=== PATIENT | female | born 1960 | race African-American/Black ===

== ENCOUNTER 2017-04-26 17:10 | Inpatient (IN) | payer OTHER ==
[~2017-04-26] VITALS: Ht 157.4 cm; Wt 46.3 kg
--- NOTE | ~2017-04-26 | PR ---
[place], [place] PROGRESS NOTE NAME: SERA CLARK UNIT #: [id number] ROOM: 315 DOCTOR: KELSEA MOORE MD BIRTHDATE: [birth year] DOS: 04/28/2017 CHIEF COMPLAINT: "I want regular soap, I do not like this kind of soap." SUMMARY OF THE VISIT: The patient was interviewed in her room. She was up moving about, and trying to get ready. She was very upset and agitated about the soap that was being given to her and seemed to be magnifying her frustration. On a positive note, she did report that she slept better last night, but is still feeling depressed and overwhelmed with life stressors. She convincingly denies any medication side effects. MENTAL STATUS: She is alert and oriented. Mood does still seem to be depressed with anxious overtones. There is no arun or hypomania. There are no auditory or visual hallucinations. No delusions, no paranoia. Short term memory, long-term memory are intact. PLAN: I will maintain her current dose of Remeron and Risperdal. Continue to engage her in individual and davis milieu activity with the ultimate plan to return home when psychiatrically stable. KELSEA MOORE MD CM:PNTRANS 1 04 KELSEA MOORE MD 04/28/172302 interface
--- NOTE | ~2017-04-26 | DS ---
[place], [place] DISCHARGE SUMMARY NAME: SERA CLARK UNIT #: [id number] ROOM: 315 DOCTOR: KELSEA MOORE MD BIRTHDATE: [birth year] DOS: 05/02/2017 CHIEF COMPLAINT: "I have just been so depressed, I cannot function." HISTORY OF PRESENT ILLNESS: This is a 56-year-old black female who was admitted here from on an involuntary basis. The patient was picked up by the police who found her in her parking lot lying on the ground. The patient was incoherent at the time and totally disoriented. She was evaluated at the hospital and they likewise found her to be alert, but very disoriented and confused. Because they felt that she represented a harm to self because she could not attend to her ADLs and care for herself, they did send her on an involuntary basis here. The patient traces much of her recent problems to having placed her mother into a long-term care facility. She has been her primary caregiver for the last 8 years and the mother who suffers from Alzheimer dementia has progressed to the point where care for her at home is impossible. The patient did endorse multiple neurovegetative signs at the time of admission including feeling depressed with poor sleep with difficulty falling asleep, sleep continuity disturbance, rn surgical pcu awakening, anergia, anhedonia, hopeless, helpless feelings, crying spells, and inability to cope. She has had an extremely poor appetite and has lost considerable amount of weight. She is admitted now to rule out organic factors, to stabilize on medication and return home when stable. PAST MEDICAL HISTORY: The patient has a previous history of cocaine and heroin abuse; however, she reports being clean and sober for 20 years. She is currently a cigarette smoker and suffers from nicotine dependence as well as having a history of anemia. SUMMARY OF HOSPITAL COURSE: The patient was admitted to the unit where she was found to have a low vitamin D level, so vitamin D 50,000 international units was weekly was started. For her depression, Remeron 15 mg at bedtime was utilized and Risperdal 0.5 mg in the morning and 1 mg at night was given because there was a significant psychotic component to her depression. The patient was nearly catatonic early on and then had a bout where she suddenly woke up and became very combative and attempted to elope the facility on multiple times. She was very confused and disoriented and required p.r.n. intervention. At this point in time, her Risperdal dose was doubled to 1 mg in the morning and 2 mg at bedtime with excellent results. The patient cleared rapidly. Because her sleep still was somewhat problematic, the Remeron was adjusted minimally from 15 mg to 22.5 mg at bedtime and again with excellent results. With this combination of medication, the patient slept well, ate better, was able to engage in individual and davis milieu activities. She voiced positive plans for the future and was anxious to return home. Her plan was to go home to [place] to live with her son. She convincingly denied medication side effects. MENTAL STATUS AT DISCHARGE: She is alert and oriented with some mild time gaps. Mood is strongly trending towards euthymia. Affect is much more appropriate. There are no symptoms of hypomania or arun. There are no overt auditory or visual hallucinations. No delusions, no paranoia. Short, intermediate, and long-term memory were intact. [place], [place] DISCHARGE SUMMARY NAME: SERA CLARK UNIT #: [id number] ROOM: 315 DOCTOR: KELSEA MOORE MD BIRTHDATE: [birth year] FINAL DIAGNOSIS AT DISCHARGE: Major depression, recurrent, with psychotic features. PLAN: All of her prescriptions have been printed and will be sent home with her. She will have followup in the [place] area with the provider of her choice. KELSEA MOORE MD CM:DISCHARG 0833 KELSEA MOORE MD 05/02/17 0831 interface
--- NOTE | ~2017-04-26 | WRIGHTHP ---
[place], [place] PATIENT HISTORY AND PHYSICAL EXAM NAME: SERA CLARK UNIT #: [id number] ROOM: 317 DOCTOR: KELSEA MOORE MD BIRTHDATE: [birth year] DOS: 04/27/2017 INITIAL PSYCHIATRIC EVALUATION CHIEF COMPLAINT: "I have just been so depressed. I cannot function." HISTORY OF PRESENT ILLNESS: This is a 56-year-old black female sent here on an involuntary basis from [facility]. The patient was picked up by the police who found her in her parking lot lying on the ground. The patient was incoherent at that time and totally disoriented. She was evaluated at the hospital who likewise found her to be alert, but disoriented and felt that she represented a significant risk of harm to self and others. The patient did verbalize feeling both depressed and anxious and very fearful. She traces much of this to recently having to place her mother into a long-term care facility. Her mother suffers from Alzheimer's and she was her primary caregiver for at least 8 years. During this most recent period of time, the patient endorses multiple neurovegetative symptoms that include decreased sleep with difficulty falling asleep, sleep continuity disturbance, aerospace quality engineer awakening, anergia, anhedonia, hopeless, helpless feelings, crying spells and inability to cope. The patient also has an extremely poor appetite and has lost a considerable amount of weight. She is admitted now to rule out organic factors and to attempt to stabilize on medication. PAST MEDICAL HISTORY: Remarkable for a history of cocaine and heroin abuse. However, she has been clean for at least 20 years. She also has a history of anemia and nicotine dependence. MENTAL STATUS: She is alert and oriented. Mood is overwhelmingly depressed. Affect is flat and blunted with a constricted range. She endorses the above-mentioned neurovegetative symptoms. There is no overt hypomania or arun. There are no auditory or visual hallucinations. It is unclear if some of her fearfulness borders on being paranoid. Memory seems intact. DIAGNOSIS: Major depression, recurrent with psychotic features. PLAN: I have already started her on Risperdal 0.5 in the morning and 1 mg at bedtime. I do not want to see her sedate, so I will discontinue the a.m. dose of Risperdal. I will add Remeron 15 mg at bedtime to combat the depression. Routine screening examination show her to have a low vitamin D level, so I will start vitamin D 50,000 international units weekly. We will engage her in individual and davis milieu activity with the plan to return home when psychiatrically stable. [place], [place] PATIENT HISTORY AND PHYSICAL EXAM NAME: SERA CLARK UNIT #: [id number] ROOM: 317 DOCTOR: KELSEA MOORE MD BIRTHDATE: [birth year] KELSEA MOORE MD CM:HISPHYS:PATIENT HISTORY AND PHYSICAL EXAMINATION [id number] KELSEA MOORE MD 04/27/17 1311 interface
--- NOTE | ~2017-04-26 | PR ---
[place], [place] PROGRESS NOTE NAME: SERA CLARK UNIT #: [id number] ROOM: 315 DOCTOR: KELSEA MOORE MD BIRTHDATE: [birth year] DOS: 05/01/2017 CHIEF COMPLAINT: "I still need help, I will sign in." SUMMARY OF THE VISIT: The patient was interviewed as she rested quietly in bed. She did engage in conversation with me readily. She did report that she did sleep better, but is still tired and does not want to get up. When I discussed with her her continued stay here, she nodded in approval and stated she knows she still needs to get help and prefers to stay here then leave. She convincingly denies medication side effects. Nurses note that her behavior which was so problematic Monday night leading into Monday seemed to take a turn for the better and she regrouped and did have a much better weekend. She does still seem to be somewhat depressed, but is improving gradually. MENTAL STATUS: She is alert and oriented with some gaps in time frame. Mood does seem to be strongly trending towards euthymia and affect is much more appropriate. There is no symptom suggestive of hypomania or arun. Likewise, there are no overt auditory or visual hallucinations. No delusions, no paranoia. Short, intermediate and long-term memories for the most part are fairly intact. PLAN: I will maintain her current dose of Risperdal, which is 1 mg in the morning and 2 mg at 5 p.m. I will increase her Remeron from 15 to 22.5 mg at bedtime in order to maximize potential benefits. We will engage her in individual and davis milieu activity with the ultimate plan to return home when psychiatrically stable. KELSEA MOORE MD CM:PNTRANS [id number] KELSEA MOORE MD 05/01/17 1009 interface
--- NOTE | ~2017-04-26 | PR ---
[place], [place] PROGRESS NOTE NAME: SERA CLARK UNIT #: [id number] ROOM: 315 DOCTOR: KELSEA MOORE MD BIRTHDATE: [birth year] DOS: 04/29/2017 CHIEF COMPLAINT: The patient mumbled. SUMMARY OF THE VISIT: The patient was attempted to be interviewed. She was reclining in a Haylie chair watching television in the dining area. She was somewhat somnolent, attempts to engage her were met with her mumbling unintelligibly. Nurses report, she had a horrible evening last evening and around 5:00 p.m. began to escalate and became increasingly confused and agitated. She was seeking and required to be redirected on multiple occasions, ultimately requiring p.r.n. intervention with good results with some residual somnolence noted. MENTAL STATUS: My mental status is limited due to her level of somnolence at the present time. PLAN: I will go ahead and increase the Risperdal to 1 mg in the morning and I will do a 2 mg dose at 1700 hours to try to offset what appears to be sundowning. We will need to get a better handle as to whether this was an isolated incident or if we are seeing a pattern suggestive of sundowning and need to then evaluate her cognitive status to determine whether or not this will impact negatively on her being able to live independently. We will engage her in individual and davis milieu activity with the plan to return to the least restrictive environment when psychiatrically stable. KELSEA MOORE MD CM:PNTRANS [id number] KELSEA MOORE MD 04/29/17 1244 interface
[2017-04-26 19:38] VITALS: BP 143/81
--- NOTE | 2017-04-26 19:38 | NUR ---
SERA CLARK Shabnam a 56 year old F admitted via stretcher from the ADMITTING as a voluntary admission. Arrived on unit at 1935PM. ALLERGIES: DENIES. Vital signs are: [id number] 143/81. The client signed the following forms with stated understanding: Authorization For The Release of Medical Information, Clothing List, CLIENT PINK SLIPPED, UNABLE TO SIGN THE FOLLOWING. Admission and Hospitalization, Consent and Release Forms/Receipt of Rights, Acknowledgement of Advance Directive Information, Behavioral Health Consent Form, and Informed Consent of Medications. Admitted under the services of Dr. OSCAR ALMARAZ,[facility]. A search was conducted and hazardous articles were removed. Client was oriented to the unit. Client teary and forgetful. Most questions answered with "Idon't know". Emotional support provided ROSALIA SINCLAIR
[2017-04-26 19:45] VITALS: BP 143/81
[2017-04-26 19:55] VITALS: BP 143/81
--- NOTE | 2017-04-26 21:50 | NUR ---
SHOWING SIGNS OF SHORT TERM MEMORY LOSS. HAS BEEN TO DESK MULTIPLE TIMES ASKING FOR HER BOOK FROM HOME. REMINDED HER THAT SHE DID NOT BRING IT AND SHE PROBABLY GAVE IT TO HER SON THE SAME TIME SHE GAVE HIM HER MONEY. PLACED HAT IN TOILET AND EXPLAINED WE NEEDED A URINE. WENT TO CHECK AND HAT HAD RESIDUAL OF URINE. WHEN ASKED WERE URINE WAS SHE REPLIED "OH I FORGOT AND DUMPED IT" REINFORCED IMPORTANCE OF LETTING US KNOW WHEN SHE GOES AND NOT TO FLUSH. VERBALIZED UNDERSTANDING BUT WILL CONTINUE TO REMIND HER.
--- NOTE | 2017-04-26 22:00 | NUR ---
NOTIFIED DR Lucila GENTILE ABOUT ADMISSION AND THAT MEDICATION REC IS READY FOR HER REVIEW. DR RAHMAN IS HOSPITALIST
--- NOTE | 2017-04-27 01:13 | NUR ---
RESTING QUIET AT THIS TIME. MOVING SELF IN BED. WILL START TREATMENT PLAN IN AM.
--- NOTE | 2017-04-27 03:10 | NUR ---
DR Ismael GENTILE HERE TO EXAMINE CLIENT
[2017-04-27 04:48] LABS: BASO % 0.7 % (0.0-1.0); EOS % 0.9 % (1.0-4.0); HEMOGLOBIN 12.6 g/dl (12.0-16.0); LYMPH # 1.8 10*3/uL (1.3-4.4); LYMPH % 40.5 % (27.0-41.0); MEAN CELL VOLUME 84.6 fl (81.0-99.0); MEAN CORPUSCULAR HGB 28.1 pg (27.0-31.0); MEAN CORPUSCULAR HGB CONC 33.2 g/dl (33.0-37.0); MEAN PLATELET VOLUME 10.9 fl (9.6-12.3); MONO # 0.4 10*3/uL (0.1-1.0); MONO % 9.8 % (3.0-9.0); NEUT # 2.1 10*3/uL (2.3-7.9); NEUT % 47.9 % (47.0-73.0); PLATELET COUNT AUTOMATED 138 10*3/uL (130-400); RED BLOOD COUNT 4.49 10*6/uL (4.10-5.10); RED CELL DISTRI WIDTH 14.1 % (0-14.5); WHITE BLOOD COUNT 4.4 10*3/uL (4.8-10.8)
--- NOTE | 2017-04-27 05:01 | NUR ---
24 HR chart check completed.
[2017-04-27 05:04] LABS: ALBUMIN 3.8 gm/dl (3.1-4.5); ALKALINE PHOSPHATASE 69 U/L (45-117); BUN 19 mg/dl (7-24); CHLORIDE 105 mmol/L (98-107); CHOLESTEROL 174 mg/dL (<200); CREATININE 0.73 mg/dL (0.55-1.02); HDL CHOLESTEROL 74 mg/dl (40-60); LDL CHOLESTEROL 90 mg/dL (9-159); POTASSIUM 3.5 mmol/L (3.5-5.1); SGOT/AST 25 IU/L (3-35); SGPT/ALT 19 U/L (12-78); SODIUM 140 mmol/L (136-145); TRIGLYCERIDES 50 mg/dl (<150); VLDL CHOLESTEROL 10 mg/dL (6-40)
--- NOTE | 2017-04-27 06:21 | NUR ---
SLEPT WELL PAST 2300
[2017-04-27 07:43] LABS: VITAMIN D, 25-HYDROXY 12.9 ng/mL (30-100)
[2017-04-27 07:58] VITALS: BP 100/63
--- NOTE | 2017-04-27 11:27 | NUR ---
PHYSICAL THERAPY PAtient requests no PT evaluation this date. Thank you for this referral. Kamini Ceballos ,PT
--- NOTE | 2017-04-27 12:01 | NUR ---
Occupational Therapy evaluation offered this date. Patient politely declined stating she was too tired today. Patient agreed to tomorrow. Thank you for this referral. Beth Cameron OTR/l
--- NOTE | 2017-04-27 13:19 | NUR ---
Goals,exercise and Trivia Patient did not attend group this morning. Patient was encouraged to do so but refused repeatedly. Ac will attempt again for afternoon group
--- NOTE | 2017-04-27 14:14 | NUR ---
PT ALERT TO PERSON AND PLACE. PT MED COMPLIANT WITHOUT DIFFICUTLY. PT MOOD IS DEPRESSED. PT SLOW TO RESPOND AT TIMES. PT ISOALTIVE TO ROOM FOR MOST OF MORNING. PT PARTICIPATED IN AFTERNOON GROUP. PT HAD 1:1 SESSION WITH GEODETIC TECHNICIAN. PT AMBULATORY THROUGHOUT UNIT, GAIT STEADY. PT CONTINENT OF BOWEL AND BLADDER. PLAN IS TO ENCOURAGE PT TO PARTICIPATE IN GROUPS/ACTIVITIES, ENCOURAGE PT TO VOICE ANY HALLUCINATIONS OR DELUSIONS, PRESENT REALITY WITH EACH INTERACTON AND NEEDED.
--- NOTE | 2017-04-27 14:15 | NUR ---
DANIELITO spoke with pt. son, Rohan who sattes that his mother can stay with him upon d/c. pt is experiencing agitation and "edginess" from not having a cigarette. I aske dher about the nicotine patch and she states, "I really don't want one of those". SW encouraged her to think about getting one atleast while she is on the unit. pt states she will think about it.
--- NOTE | 2017-04-27 16:14 | NUR ---
Physical Therapy evaluation completed. Patient was somewhat reluctant to participate in eval but quickly cooperated. Gait up/down [facility] hallway, [id number] without assistive devices; Transfers are independent. Patient has B LE strength WFL and equal bilaterally. Patient denies pain. Patient demonstrates no safety concerns with functional mobility at this time. PT Eval only as discussed with patient. Low Complexity PT evaluation. Thank you for this referral, Ashley Hernandez, PT
[2017-04-27 18:07] LABS: BILIRUBIN 1+ (NEGATIVE); BLOOD TRACE-INTACT (NEGATIVE); CLARITY CLEAR (CLEAR); COLOR YELLOW (YELLOW); GLUCOSE NEGATIVE (NEGATIVE); KETONE 2+ (NEGATIVE); LEUKO ESTERASE NEGATIVE (NEGATIVE); NITRITE NEGATIVE (NEGATIVE); SPECIFIC GRAVITY 1.025 (1.005-1.030)
[2017-04-27 20:21] VITALS: BP 124/90
--- NOTE | 2017-04-28 01:42 | NUR ---
PT A&O X3. DEPRESSED MOOD. ISOLATIVE AND WITHDRAWN TO SELF. NO HALLUCINATIONS/DELUSIONS NOTED. NO SI/HI. MEDICATION COMPLIANT WITHOUT DIFFICULTY. MEDICATION EDUCATION PROVIDED. PT RETIRED TO BED AFTER RECEIVING MEDICATIONS. RESPIRATIONS EASY AND NONLABORED. Q15 MINUTE SAFETY CHECKS MAINTAINED. SEE [facility] FLOWSHEET FOR SPECIFIC MONITORING.
--- NOTE | 2017-04-28 03:02 | NUR ---
24 HR chart check completed.
--- NOTE | 2017-04-28 06:50 | NUR ---
PT SLEPT APPROXIMATELY 7 HOURS THIS SHIFT.
[2017-04-28 07:41] VITALS: BP 114/71
--- NOTE | 2017-04-28 08:05 | NUR ---
Occupational Therapy Patient approached for OT evaluation this date. Patient was demonstrating independence in ambulation, functional mobility to dining area for breakfast. Patient admits that she is independent in all ADLs and does not require OT at this time. OT Screen completed with no need for OT at this time. Thank you for this referral. Beth Cameron OTR/L
--- NOTE | 2017-04-28 09:02 | NUR ---
SW agitated and states "I need a cigaraette, SW was empathetic, but let pt. know again thatb she cannot smoke while on the unit". D/c plans next week, no date given.
--- NOTE | 2017-04-28 09:07 | NUR ---
04/27/17 Afternoon: Coping with various feelings/Emoji face suncatcher Patient was in 1:1 with SW when group started but joined shortly after. Patient participated and chose not to paint suncatcher but did discuss coping skills with various feelings that she has. Patient was notably depressed during group but yu participated
--- NOTE | 2017-04-28 12:54 | NUR ---
Goals/Exercise/Reminiscing Patient did attend group with limited participation. Patients goal was to "stay positive" which patient was attempting during group. Patient did need some prompting to participate but showed no anxiety or hopelessness while in group. Patient also voiced no suicidal ideations while in group.
--- NOTE | 2017-04-28 15:15 | NUR ---
PT HAS BEEN ANGRY/IRRITABLE MOST OF THE SHIFT. ALERT AND ORIENTED WITH SEVERAL PERIODS OF ACUTE CONFUSION THROUGHOUT THE SHIFT. HAS BEEN OBSERVED WALKING INTO OTHER PTS ROOM, REDIRECTION MET WITH INCREASED AGITATION. SUSPICIOUS AND PARANOID OF STAFF. CAN BE INTRUSIVE/DISRUPTIVE WITH STAFF AND PEERS. NO DELUSIONS OR HALLUCINATIONS NOTED. DENIES ANY SI/HI, PLAN, OR INTENT. MEDICATION COMPLIANT WITHOUT DIFFICULTY. .
--- NOTE | 2017-04-28 18:04 | NUR ---
PATIENT OBSERVED PACING HALLWAYS, PUSHING ON DOORS, ATTEMPTING TO LEAVE UNIT. INCREASED ANXIETY/AGITATION NOTED. PT STATING MY "STUFF IS UPSTAIRS, I NEED TO GO SMOKE, HOW DO I GET OUT OF HERE." INCREASED CONFUSION NOTED. ALL ATTEMPTS TO REDIRECT AND REORIENT ONLY MET WITH ANGER. PARANOID DELUSIONS BEING VOICED ABOUT STAFF. WILL CONTINUE TO MONITOR.
[2017-04-28 20:09] VITALS: BP 126/88
--- NOTE | 2017-04-28 22:50 | NUR ---
PATIENT AMBULATING IN HALLWAY WITH UNSTEADY GAIT. PATIENT ARGUMENTATIVE WITH STAFF AND INTRUSIVE AND DISRUPTIVE WITH OTHER PATIENTS. PATIENT EXIT SEEKING AND ATTEMPTING TO OPEN ALL DOORS ON UNIT. PATIENT YELLING OUT, BANGING ON DOORS, AND WINDOW AT NURSES STATION. PATIENT RESTLESS AND VERBALIZED THAT SHE JUST NEEDED SOMETHING TO CALM DOWN. MEDICATED WITH ATIVAN WITH INEFFECTIVE RESULT. PATIENT RESTED FOR SHORT PERIODS OF TIME. PATIENT MEDICATION COMPLAINT.
--- NOTE | 2017-04-29 05:24 | NUR ---
24 HR chart check completed.
[2017-04-29 07:55] VITALS: BP 132/86
--- NOTE | 2017-04-29 10:07 | NUR ---
REFUSED NICODERM PATCH AT THIS TIME. RESTING IN BED WITH EYES CLOSED. WILL ATTEMPT AGAIN AT A LATER TIME. REFUSED TO ALLOW THIS NURSE TO REMOVED OLD PATCH ALSO.
--- NOTE | 2017-04-29 11:08 | NUR ---
PATIENT IS DOWSY AND CONFUSED THIS AM. ASSISTED INTO BED BY MT D/T UNSTEADY GAIT. MOOD IS ANGRY AND LABILE. ST/LT MEMORY DEFICITS NOTED UPON AM INTERACTIONS. REFUSED BREAKFAST THIS MORNING.
--- NOTE | 2017-04-29 16:30 | NUR ---
PATIENT UP AND WALKING AROUND. INCREASED CONFUSION NOTED. STATING "I'M GOING TO GO SMOKE NOW." REORIENTATION ONLY MET WITH INCREASED AGITATION. PATIENT SITTING IN DINNING ROOM CONVERSING WITH PEERS.
[2017-04-29 20:00] VITALS: BP 110/73
--- NOTE | 2017-04-29 21:15 | NUR ---
KARMA WATSON. HAS BEEN ON PHONE WITH SON FOR A WHILE. NOT INTERESTED IN TALKING 1:1. WANDERING INTERMITTENLY IN HALLWAY. WILL MONITOR
[2017-04-30 07:51] VITALS: BP 103/70
--- NOTE | 2017-04-30 15:52 | NUR ---
PATIENT IS ALERT AND ORIENTED WITH PERIODS OF CONFUSION. MOOD HAS BEEN MORE STABLE THIS SHIFT THAN YESTERDAY WITHOUT ANY ELOPEMENT ATTEMPTS. MOOD DOES REMAIN MILDLY DEPRESSED WITH FLAT AFFECT MOST OF THE TIME DURING INTERACTIONS WITH HER. ISOLATIVE AND WITHDRAWN TO ROOM DESPITE ENCOURAGEMENT TO INTERACT WITH PEERS. MEDICATION COMPLIANT WITHOUT DIFFICULTY. MEDICATION EDUCATION COMPLETED THIS SHIFT WITH MINIMAL EFFECT. NO HALLUCINATIONS, DELUSIONS, OR BEHAVIORS NOTED. DENIES ANY SI/HI. APPETITE GOOD FOR BREAKFAST AND LUNCH, ATE 100% OF BOTH AND TAKING FLUIDS WELL. NAPS INTERMITTENTLY THROUGHOUT THE SHIFT. SEE [facility] FLOWSHEET FOR SPECIFIC MONITORING.
[2017-04-30 20:00] VITALS: BP 108/74
--- NOTE | 2017-04-30 20:51 | NUR ---
STATES HAD A GOOD DAY./ READY TO GO HOME. IN DININGROOM FOR SHORT PERIOD
--- NOTE | 2017-05-01 01:27 | NUR ---
24 HR chart check completed.
--- NOTE | 2017-05-01 04:26 | NUR ---
TURNS SELF IN BED WITHOUT ASSISTANCE. RESTING QUIET THIS SHIFT
--- NOTE | 2017-05-01 05:01 | NUR ---
PT APPROVED 12 DAY STAY PER CAREUCE. NEXT REVIEW DUE 05/08/17.
--- NOTE | 2017-05-01 07:59 | NUR ---
04/28/17 Afternoon Coping skills Patient did not participate in group. Patient angry and upset about being here and her clothes being "upstairs." Patient then requested to call someone
[2017-05-01 08:15] VITALS: BP 112/71
--- NOTE | 2017-05-01 13:21 | NUR ---
Goals/Exercise/Positive Thoughts & Affirmations Patient did not attend group this morning. Patient took a shower then did not show up to group after showering
--- NOTE | 2017-05-01 15:13 | NUR ---
Mood is depressed. Affect is sad. On 1:1 interaction with staff Tricia is limited in verbalization. She states that she does not remember why she came to the hospital. We discussed her episodes of confusion and she looked @ staff questioning and reports that she does not remember. Support provided. Admits to feelings of depression, but does not elaborate on this. Denies any thoughts of self harm when questioned. Though she is isolative to her room @ times, she is also noted to spend some time up in the dining room watching television. Limited in interactions with peers. Dr. eVgas in to see her today with orders received. Refer to [facility] flowsheet for specific monitoring.
--- NOTE | 2017-05-01 15:20 | NUR ---
Positive Self -Talk Patient refused to participate getting up and leaving room when AC came in to start group. 10 Minutes into group patient returns to actively participate. Patient could find nothing positive about herself. Discussed with patient what we saw positive in her but patient doesnt believe it. 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
--- NOTE | 2017-05-01 15:41 | NUR ---
pt signed in today, pink slip not filed.
--- NOTE | 2017-05-01 18:41 | NUR ---
Voluntary admission form reviewed with Tricia and she signed after stating understanding.
[2017-05-01 20:00] VITALS: BP 127/80
--- NOTE | 2017-05-01 20:55 | NUR ---
QUIET AND ISOLATIVE. IN DININGROOM ONLY TO EAT SNACK REVIEWED MEDICATIONS AND REASONING FOR IT DISCUSSED EXPRESSING NEEDS AND INCREASE HER SOCIALIZATION WITH PEERS. ENCOURAGED TO ATTEND AND PARTICIPATE IN GROUPS. STATES SHE'LL TRY DENIES ANY NEW ISSUES AT THIS TIME.
--- NOTE | 2017-05-02 03:32 | NUR ---
24 HR chart check completed.
[2017-05-02 07:59] VITALS: BP 117/82
[2017-05-02] MEDS ORDERED: Vitamin D PO (08:06)
[2017-05-02] MEDS ORDERED: RISPERIDONE1 MG PO (08:06)
[2017-05-02] MEDS ORDERED: MIRTAZAPINE45 MG PO (08:06)
[2017-05-02] MEDS ORDERED: RISPERIDONE2 M2 PO (08:06)
--- NOTE | 2017-05-02 10:11 | NUR ---
pt to be d/c'ed today at 6pm via son, Rohan locke in personal care. pt. denies suicidal ideation and states "I fell better, I really don't want to take medicine for depression but did commit to taking it until she see's her FILE KEEPER at [facility]. pt see's soucnselor and Business Development Assistant at [facility] and was set up ith Dr. Terrance Jonas asa pcp.
--- NOTE | 2017-05-02 11:41 | NUR ---
Holiday remenissing, orientation and goals Patient did not attend group due to compleating ADLs at this time. Will attempt to engage patient in afternoon group.
--- NOTE | 2017-05-02 15:11 | NUR ---
Coping skills Patient in 1:1 session with SW during this group.
--- NOTE | 2017-05-02 16:41 | NUR ---
PT ALERT TO PERSON AND PLACE. PT MED COMPLIANT WITHOUT DIFFICULTY,MED EDUCATION PROVIDED. PT MOOD IS STABLE. PT ISOALTIVE AT TIMES. PT GOAL DIRECTED TOWARDS DISCHARGE. PT DENIES ANY HALLUCINATIONS OR DELUSIONS. PT DENIES ANY HOMICIDAL/SUICIDAL THOUGHTS. PT AMBULATORY THROUGHOUT UNIT, GAIT STEADY. PT CONTINENT OF BOWEL AND BLADDER. TREATMENT PLAN RESOLVED AT THIS TIME, DISCHARGE SET UP FOR 6PM. PT WILL BE DISCHARGED VIA PRIVATE CAR WITH SON ACCOMPANYING.
--- NOTE | 2017-05-02 17:50 | NUR ---
PT DISCHARGED TO HOME VIA PRIVATE CAR WITH SON PICKIING HER UP.
== END 2017-05-02 17:54 | disposition home or self-care (01) | DRG 885 ==
LOC: 3N 17:10
PROVIDERS: ADMIT Psychiatry & Neurology Psychiatry
DX: F33.3 Major depressive disorder, recurrent, severe with psychotic symptoms (principal); F23 Brief psychotic disorder; D64.9 Anemia, unspecified; F17.210 Nicotine dependence, cigarettes, uncomplicated; Z81.8 Family history of other mental and behavioral disorders; Z98.51 Tubal ligation status; Z71.6 Tobacco abuse counseling; Z82.0 Family history of epilepsy and other diseases of the nervous system